=== PATIENT | female | born 1950 | race Caucasian/White ===

== ENCOUNTER 2017-01-08 10:46 | Emergency (ER) | payer OTHER ==
--- NOTE | 2017-01-08 10:52 | PDOC ---
History of Present Illness - General Chief Complaint: Pain, Acute Stated Complaint: HEART BURN NAUSEA STOMACH PAIN Time Seen by Provider: 01/08/17 10:52 History Source: Patient, Family Exam Limitations: No Limitations - History of Present Illness Initial Comments: 01/08/17 10:53 The patient is a 66-year-old female with a significant past medical history of hyperlipidemia, who presents to the emergency department complaining of epigastric discomfort accompanied by nausea. She describes the epigastric discomfort as heartburn. She states that this sensation began after eating breakfast at approximately 10 AM. She reports one episode of dry heaving, but no nausea. She denies chest pain. She denies dyspnea on exertion, dyspnea at rest, orthopnea, lower extremity edema. Past History - Past Medical History Allergies/Adverse Reactions: Allergies Allergy/AdvReac Type Severity Reaction Status Date / Time Penicillins Allergy Intermediate Hives Verified 01/08/17 10:54 codeine AdvReac Intermediate Nausea Verified 01/08/17 10:55 Home Medications: Ambulatory Orders Desloratadine 5 mg PO DAILY 01/08/17 Estrogens,Conj/Bazedoxifene [Duavee 0.45-20 mg Tablet] 1 tab PO DAILY 01/08/17 Famotidine [Pepcid] 20 mg PO BID #20 tablet 01/08/17 Lactobacillus Rhamnosus GG [Culturelle] 1 cap PO DAILY 01/08/17 Lovastatin 40 mg PO DAILY 01/08/17 Sertraline HCl [Zoloft] 100 mg PO DAILY 01/08/17 Review of Systems - Review of Systems Comments:: 01/08/17 10:54 CONSTITUTIONAL: Absent: fever, chills, diaphoresis, generalized weakness, malaise, loss of appetite HEENT: Absent: rhinorrhea, nasal congestion, throat pain, throat swelling, difficulty swallowing, mouth swelling, ear pain, eye pain, visual Changes CARDIOVASCULAR: Absent: chest pain, loss of consciousness, palpitations, irregular heart rate, peripheral edema RESPIRATORY: Absent: cough, shortness of breath, dyspnea with exertion, orthopnea, wheezing, stridor, hemoptysis GASTROINTESTINAL: Present: See history of present illness Absent: abdominal distension, diarrhea, constipation, melena, hematochezia GENITOURINARY: Absent: dysuria, frequency, urgency, hesitancy, hematuria, flank pain, genital pain MUSCULOSKELETAL: Absent: myalgia, arthralgia, joint swelling SKIN: Absent: rash, itching, pallor HEMATOLOGIC/IMMUNOLOGIC: Absent: easy bleeding, easy bruising, lymphadenopathy, frequent infections ENDOCRINE: Absent: unexplained weight gain, unexplained weight loss, heat intolerance, cold intolerance NEUROLOGIC: Absent: headache, focal weakness or paresthesias, dizziness, unsteady gait, seizure, mental status changes, bladder or bowel incontinence PSYCHIATRIC: Absent: anxiety, depression, suicidal or homicidal ideation, hallucinations. *Physical Exam - Physical Exam Comments: 01/08/17 10:54 GENERAL: Well developed, well nourished. Awake and alert. No acute distress. HEENT: Normocephalic, atraumatic. PERRLA, EOMI. No conjunctival pallor. Sclera are non- icteric. Moist mucous membranes. Oropharynx is clear. NECK: Supple. Full ROM. No JVD. Carotid pulses 2+ and symmetric, without bruits. No thyromegaly. No lymphadenopathy. CARDIOVASCULAR: Regular rate and rhythm. No murmurs, rubs, or gallops. Distal pulses are 2+ and symmetric. PULMONARY: No evidence of respiratory distress. Lungs clear to auscultation bilaterally. No wheezing, rales or rhonchi. ABDOMINAL: Soft. Non-tender. Non-distended. No rebound or guarding. No organomegaly. Normoactive bowel sounds. MUSCULOSKELETAL Normal range of motion at all joints. No bony deformities or tenderness. No CVA tenderness. EXTREMITIES: No cyanosis. No clubbing. No edema. No calf tenderness. SKIN: Warm and dry. Normal capillary refill. No rashes. No jaundice. NEUROLOGICAL: Alert, awake, appropriate. Cranial nerves 2-12 intact. No deficits to light touch and temperature in face, upper extremities and lower extremities. No motor deficits in the in face, upper extremities and lower extremities. Normoreflexic in the upper and lower extremities. Normal speech. Toes are down- going bilaterally. Gait is normal without ataxia. PSYCHIATRIC: Cooperative. Good eye contact. Appropriate mood and affect. Heart Score/ECG Review - ECG Intrepretation Comment:: 01/08/17 11:03 Normal sinus rhythm at 60, normal axis, normal intervals, no ST changes, minimal voltage criteria for left ventricular hypertrophy ED Treatment Course - LABORATORY CBC & Chemistry Diagram: 01/08/17 11:23 01/08/17 11:23 Medical Decision Making - Medical Decision Making 01/08/17 10:54 The patient is well-appearing and in no acute distress Will obtain labs, chest x-ray, EKG I have an extremely low suspicion for cardiovascular pain 01/08/17 11:08 EKG noted: Normal sinus rhythm, with no ischemic changes Of note, this EKG was performed while she was symptomatic with the sensation of heartburn 01/08/17 11:29 Symptoms improved after medications Chest x-ray report noted, without any acute pathology Labs pending 01/08/17 12:04 Labs noted Troponin pending Symptoms have continued to improve 01/08/17 12:17 Troponin noted, negative She feels much better and like to go home Clinical impression: Dyspepsia/GERD I discussed the physical exam findings, ancillary test results and final diagnoses with the patient. I answered all of the patient's questions. The patient was satisfied with the care received and felt comfortable with the discharge plan and treatment plan. The patient will call their primary care physician within 24 hours to arrange follow-up and will return to the Emergency Department with any new, persistent or worsening symptoms. *DC/Admit/Observation/Transfer Diagnosis at time of Disposition: Dyspepsia - Discharge Dispostion Disposition: HOME Condition at time of disposition: Improved - Prescriptions Prescriptions: Famotidine [Pepcid] 20 mg PO BID #20 tablet - Referrals Referrals: Dixon Colunga MD [Staff Physician] - Call tomorrow - Patient Instructions Printed Discharge Instructions: DI for Gastroesophageal Reflux Disease (GERD), GERD Diet Additional Instructions: Return to the emergency department immediately with ANY new, persistent or worsening symptoms. You MUST call and follow up with your doctor tomorrow. Please make sure your doctor reviews the results of your emergency department evaluation.
[2017-01-08] MEDS ORDERED: SODIUM CHLORIDE 1,000 ML IV STA (10:53)
[2017-01-08] MEDS ORDERED: FAMOTIDINE 20 MG/50 ML IVPB 20 MG in PREMIX 50 IV ONE (10:53)
[2017-01-08] MEDS ORDERED: ONDANSETRON 4 MG/2 ML VIAL IVPB ONE (10:53)
[2017-01-08 11:12] VITALS: TEMP 98.2; BMI 24.7
[2017-01-08] MEDS ORDERED: FAMOTIDINE 20 MG/50 ML IVPB 50 ML IVPB ONE (11:28)
[2017-01-08] MEDS ORDERED: ONDANSETRON 4 MG/2 ML VIAL ONE (11:36)
[2017-01-08] MEDS ORDERED: MAG HYDROX/AL HYDROX/SIMETH 355 ML ORAL.SUSP PO ONE (11:37)
[2017-01-08 11:53] LABS: ALBUMIN 3.9 g/dl (3.5-5.0); ALK PHOS 50 U/L (32-92); ANION GAP 3 (8-16); CALCIUM 8.7 mg/dl (8.4-10.2); CO2 27 mmol/L (22-28); CPK(DFH) 90 IU/L (26-140); CREATININE 0.7 mg/dl (0.6-1.3); GLUCOSE,RANDOM 100 mg/dl (74-106); SGOT/AST 21 U/L (10-42); SGPT/ALT 17 U/L (10-40); TOT PROT 6.2 g/dl (6.4-8.3)
[2017-01-08] MEDS ORDERED: MAG HYDROX/AL HYDROX/SIMETH 30 ML UNIT-DOSE CUP ONE (11:56)
[2017-01-08 11:57] LABS: MCH 27.2 pg (25.7-33.7); MCHC 33.8 g/dl (32.0-36.0); WHITE BLOOD COUNT 6.5 K/mm3 (4.0-10.8)
[2017-01-08 12:00] LABS: BASOPHIL 1.1 % (0-2.0); MEAN CELL VOLUME 80.4 fl (80-96); MEAN PLT VOLUME 11.4 fl (7.5-11.1); PLATELET COUNT 246 K/MM3 (134-434)
[2017-01-08 12:03] LABS: BILIRUBIN,TOTAL 0.3 mg/dl (0.2-1.0)
[2017-01-08 12:05] LABS: TROPONIN I (DFP) < 0.03 ng/ml (0.03-0.50)
[2017-01-08 12:35] VITALS: BP 138/89; PULSE 60
--- NOTE | 2017-01-09 09:18 | EKG ---
Test Reason : Blood Pressure : / mmHG Vent. Rate : 055 BPM Atrial Rate : 055 BPM P-R Int : 132 ms QRS Dur : 100 ms QT Int : 430 ms P-R-T Axes : 046 013 015 degrees QTc Int : 411 ms SINUS BRADYCARDIA MINIMAL VOLTAGE CRITERIA FOR LVH, MAY BE NORMAL VARIANT POOR R WAVE PROGRESSION ABNORMAL ECG WHEN COMPARED WITH ECG OF 06-APR-2010 16:56, NO SIGNIFICANT CHANGE WAS FOUND Confirmed by ILANA GONZALES, VIPUL ([id number]) on 01/09/2017 9:18:15 AM Referred By: DR CHRISTINE Confirmed By:VIPUL PRECIADO MD
== END 2017-01-08 12:53 | disposition home or self-care (01) ==
LOC: FER 10:46
PROC: 3E033GC Introduction of Other Therapeutic Substance into Peripheral Vein, Percutaneous Approach (ICD-10-PCS; principal; 2017-01-08)
PROC: 3E0337Z Introduction of Electrolytic and Water Balance Substance into Peripheral Vein, Percutaneous Approach (ICD-10-PCS; 2017-01-08)
DX: R10.13 Epigastric pain (principal); E78.5 Hyperlipidemia, unspecified
CPT/HCPCS: 36415; 71010-TC; 80053; 82550; 83690; 83735; 84484; 85025; 93005; 96361; 96365; 96375; 99283-25

== ENCOUNTER 2018-07-06 16:03 | Emergency (ER) | payer OTHER ==
[2018-07-06] MEDS ORDERED: DIPHTH,PERTUSS(ACELL),TET 0.5 ML DISP.SYRIN IM ONE ×2 (16:13→16:22)
--- NOTE | 2018-07-06 16:15 | PDOC ---
Attending Attestation - Resident Resident Name: Gaston Arroyo - ED Attending Attestation I have performed the following: I have examined & evaluated the patient, The case was reviewed & discussed with the resident, I agree w/resident's findings & plan, Exceptions are as noted - HPI HPI: 07/06/18 16:11 67 year old female c/ hx of HLD p/w forehead laceration. Pt accidentally hit herself with edge of car door. Last tetanus unknown. Sustained a superficial approx 1.5 cm linear mid forehead laceration. No LOC. No headache/nausea/vomiting. This occurred today. - Physicial Exam PE: 07/06/18 16:14 GENERAL: Awake, alert, and fully oriented, in no acute distress HEAD: Small superficial linear mid forehead ~1.5 laceration. EYES: PERRLA, EOMI, sclera anicteric, conjunctiva clear ENT: Auricles normal inspection, hearing grossly normal, nares patent, Moist mucosa NECK: Normal ROM, supple EXTREMITIES: Normal range of motion, no edema. No clubbing or cyanosis. No cords, erythema, or tenderness NEUROLOGICAL: Cranial nerves II through XII grossly intact. Normal speech, normal gait - Medical Decision Making 07/06/18 16:14 Imp: superficial forehead laceration. Boost tetanus. Irrigated wound. Lac repair by Dr. Arroyo Scar and wound precautions given. Return to ER in 5 days for suture removal. *DC/Admit/Observation/Transfer Diagnosis at time of Disposition: Laceration - Discharge Dispostion Disposition: HOME Condition at time of disposition: Stable Decision to Admit order: No - Referrals Referrals: Sumaya Mederos MD [Primary Care Provider] - - Patient Instructions Printed Discharge Instructions: DI for Laceration Repair, DTaP Vaccine Additional Instructions: You have [address] Please use a very thin layer of bacitracin every 12 hours for the next 3 days to cover the wound. To minimize scarring, minimize sun exposure. If you notice any redness or fever or pus at the laceration site, please return to the ER. Otherwise, return to the ER in 5 days for suture evaluation and potential removal. - Post Discharge Activity
[2018-07-06 16:17] VITALS: BP 157/93; PULSE 70; TEMP 97.7; BMI 23.9
--- NOTE | 2018-07-06 16:34 | PDOC ---
History of Present Illness - General Chief Complaint: Laceration Stated Complaint: LACERATION TO FOREHEAD Time Seen by Provider: 07/06/18 16:06 - History of Present Illness Initial Comments: 07/06/18 16:34 The patient is a 67 year old female with a history of HLD who presents for evaluation of a laceration. The patient reports that she was opening a car door and hit her face on the corner of the door sustaining a laceration between her eyebrows. She denies LOC or other injuries and otherwise denies fevers, chills, SOB, chest pain, nausea, vomiting, abdominal pain, or changes with urination or bowel movements. She does not know her last tetanus shot. Past History - Past Medical History Allergies/Adverse Reactions: Allergies Allergy/AdvReac Type Severity Reaction Status Date / Time Penicillins Allergy Intermediate Hives Verified 07/06/18 15:59 codeine AdvReac Intermediate Nausea Verified 07/06/18 15:59 Home Medications: Ambulatory Orders Desloratadine 5 mg PO DAILY 01/08/17 Estrogens,Conj/Bazedoxifene [Duavee 0.45-20 mg Tablet] 1 tab PO DAILY 01/08/17 Lovastatin 40 mg PO DAILY 01/08/17 Sertraline HCl [Zoloft] 100 mg PO DAILY 01/08/17 COPD: No Hypercholesterolemia: Yes - Surgical History Cardiac Surgery: Yes - Suicide/Smoking/Psychosocial Hx Smoking History: Never smoked If you are a former smoker, when did you quit?: YEARS AGO Information on smoking cessation initiated: Yes Hx Alcohol Use: Yes (SOCIAL) Drug/Substance Use Hx: No Substance Use Type: Alcohol Review of Systems - Review of Systems Comments:: 07/06/18 16:39 Constitutional: No fevers, chills, fatigue, malaise HEENT: Laceration between the eyebrows. No Rhinorrhea, nasal congestion, visual changes Cardiovascular: No chest pain, syncope, palpitations, lightheadedness Respiratory: No Cough, SOB, Hemoptysis, Gastrointestinal: No Abdominal pain, Nausea, Vomiting, Constipation, Diarrhea, Melena Genitourinary: No Dysuria, Frequency, Urgency, Hesitancy, Hematuria, Flank pain Musculoskeletal: No Myalgia, arthralgia Skin: No rashes, itching, bruising, pallor Neurologic: No Headache, Dizziness, Numbness, Weakness, or Tingling Psychiatric: No Hallucinations. No SI or HI *Physical Exam - Vital Signs Last Vital Signs Temp Pulse Resp BP Pulse Ox 97.7 F 70 16 157/93 99 07/06/18 16:05 07/06/18 16:05 07/06/18 16:05 07/06/18 16:05 07/06/18 16:05 - Physical Exam Comments: 07/06/18 16:39 General Appearance: Nourished. No Apparent Distress HEENT: EOMI, ZULEIMA. 1cm linear laceration between the eye brows. No Pharyngeal Erythema, Tonsillar Exudate, Tonsillar Erythema Neck: No Cervical Lymphadenopathy or C-spine tenderness. Respiratory/Chest: Lungs Clear, Normal Breath Sounds. No Crackles, Rales, Rhonchi, Wheezing Cardiovascular: Regular Rhythm, Regular Rate. No Murmur, Gallops, Rubs Gastrointestinal/Abdominal: Normal Bowel Sounds, Soft. No Guarding, Rebound, Tenderness Musculoskeletal: No CVA Tenderness Extremity: Normal Capillary Refill Integumentary: Normal Color, Dry, Warm Neurologic: rotor balancer II-XII NML intact, Fully Oriented, Alert, Normal Mood/Affect, Normal Response, Moderate Sedation - Procedure Monitoring Vital Signs: Procedure Monitoring Vital Signs Temperature 97.7 F 07/06/18 16:05 Pulse Rate 70 07/06/18 16:05 Respiratory Rate 16 07/06/18 16:05 Blood Pressure 157/93 07/06/18 16:05 O2 Sat by Pulse Oximetry (%) 99 07/06/18 16:05 Procedures - Laceration/Wound Repair Upper Face Wound Length: to 2.5 cm Wound Explored: clean, no foreign body present Wound's Depth, Shape: superficial, linear Irrigated w/ Saline: Yes Betadine Prep: Yes Anesthesia: 1% Lidocaine Amount of Anesthetic (ccs): 2 Wound Repaired With: Sutures Suture Size/Type: 6:0, nylon Number of Sutures: 3 Layer Closure: Yes Sterile Dressing Applied: Yes ED Treatment Course - Medications Given in the ED: ED Medications Discontinued Medications Generic Name Dose Route Start Last Admin Trade Name Freq PRN Reason Stop Dose Admin Diphtheria/Tetanus/Acell Pertussis 0.5 ml 07/06/18 16:13 07/06/18 16:24 Boostrix - IM 07/06/18 16:14 0.5 ml .ONCE ONE Administration Medical Decision Making - Medical Decision Making 12/28/18 16:40 The patient is a 67 year old female with a history of HLD who presents for evaluation of a laceration. The patient appears clinically well on exam with no other obvious signs of trauma. The patient's laceration was repaired with 3 6-0 nylon sutures. We up dated the patient's tetanus shot. We are comfortable discharging the patient home with primary care provider follow up. We discussed proper wound care instructions, the plan, and return precautions with the patient who voiced understanding and is agreeable with the plan. *DC/Admit/Observation/Transfer Diagnosis at time of Disposition: Laceration - Discharge Dispostion Disposition: HOME Condition at time of disposition: Stable - Referrals Referrals: Sumaya Mederos MD [Primary Care Provider] - - Patient Instructions Printed Discharge Instructions: DI for Laceration Repair, DTaP Vaccine Additional Instructions: You have [address] Please use a very thin layer of bacitracin every 12 hours for the next 3 days to cover the wound. To minimize scarring, minimize sun exposure. If you notice any redness or fever or pus at the laceration site, please return to the ER. Otherwise, return to the ER in 5 days for suture evaluation and potential removal. - Post Discharge Activity
== END 2018-07-06 16:35 | disposition home or self-care (01) ==
LOC: FER 16:03
PROC: 0HQ1XZZ Repair Face Skin, External Approach (ICD-10-PCS; principal; 2018-07-06)
PROC: 3E0234Z Introduction of Serum, Toxoid and Vaccine into Muscle, Percutaneous Approach (ICD-10-PCS; 2018-07-06)
DX: S01.81XA Laceration without foreign body of other part of head, initial encounter (principal); W22.8XXA Striking against or struck by other objects, initial encounter; Y93.89 Activity, other specified; Y92.89 Other specified places as the place of occurrence of the external cause; E78.5 Hyperlipidemia, unspecified; Z88.0 Allergy status to penicillin; Z88.6 Allergy status to analgesic agent
CPT/HCPCS: 90715; 99282-25

== ENCOUNTER 2018-07-11 11:40 | Emergency (ER) | payer OTHER ==
[2018-07-11 11:48] VITALS: BP 123/73; PULSE 65; TEMP 97.7; BMI 24.0
--- NOTE | 2018-07-11 12:01 | PDOC ---
Suture Removal/Wound Check HPI - History of Present Illness Chief Complaint: Suture/Staple Removal(Here) Stated Complaint: suture removal Time Seen by Provider: 07/11/18 11:49 History Source: Yes: Patient Exam Limitations: Yes: No Limitations - Previous ED Treatment Type of procedure performed on last visit: Yes: Laceration Repair (sutures removed from forehead x 3. tolerated well. no redness. no swelling no discharge. cdi.) Past History - Past Medical History Allergies/Adverse Reactions: Allergies Allergy/AdvReac Type Severity Reaction Status Date / Time Penicillins Allergy Intermediate Hives Verified 07/11/18 11:41 codeine AdvReac Intermediate Nausea Verified 07/11/18 11:41 Home Medications: Ambulatory Orders Desloratadine 5 mg PO DAILY 01/08/17 Estrogens,Conj/Bazedoxifene [Duavee 0.45-20 mg Tablet] 1 tab PO DAILY 01/08/17 Lovastatin 40 mg PO DAILY 01/08/17 Sertraline HCl [Zoloft] 100 mg PO DAILY 01/08/17 COPD: No Hypercholesterolemia: Yes - Surgical History Cardiac Surgery: Yes - Immunization History Immunization Up to Date: Yes - Suicide/Smoking/Psychosocial Hx Smoking History: Never smoked Have you smoked in the past 12 months: No If you are a former smoker, when did you quit?: YEARS AGO Information on smoking cessation initiated: No Hx Alcohol Use: No Drug/Substance Use Hx: No Substance Use Type: Alcohol *Review of Systems - Review of Systems Constitutional: No: Chills, Diaphoresis, Fever All Other Systems: Reviewed and Negative *Physical Exam - Vital Signs Last Vital Signs Temp Pulse Resp BP Pulse Ox 97.7 F 65 20 123/73 97 07/11/18 11:41 07/11/18 11:41 07/11/18 11:41 07/11/18 11:41 07/11/18 11:41 - Physical Exam Comments: 07/11/18 12:00 suture wound to forehead cdi. no redness no swelling. NAD Moderate Sedation - Procedure Monitoring Vital Signs: Procedure Monitoring Vital Signs Temperature 97.7 F 07/11/18 11:41 Pulse Rate 65 07/11/18 11:41 Respiratory Rate 20 07/11/18 11:41 Blood Pressure 123/73 07/11/18 11:41 O2 Sat by Pulse Oximetry (%) 97 07/11/18 11:41 Medical Decision Making - Medical Decision Making 07/11/18 12:00 sutures removed. *DC/Admit/Observation/Transfer Diagnosis at time of Disposition: Visit for suture removal - Discharge Dispostion Disposition: HOME Condition at time of disposition: Improved - Referrals - Patient Instructions Printed Discharge Instructions: DI for Suture Removal Additional Instructions: keep out of sun to avoid scarring. - Post Discharge Activity
== END 2018-07-11 12:04 | disposition home or self-care (01) ==
LOC: FER 11:40
DX: Z48.02 Encounter for removal of sutures (principal)
CPT/HCPCS: 99281-25